=== PATIENT | female | born 1980 | race Two or more races ===

== ENCOUNTER 2022-11-30 18:36 | Emergency (ER) | payer BC ==
[~2022-11-30] VITALS: Ht 160 cm; Wt 72.6 kg
--- NOTE | 2022-11-30 18:46 | NUR ---
"I was making dinner and sliced my pinkie" PT A/OX4. TOLERATING R/A WELL WITH NO RESP DISTRESS.
[2022-11-30 18:47] VITALS: BP 126/81
[2022-11-30] MEDS ORDERED: GELATIN SPONGE,ABSORBABLE 1 SPONGE SPONGE TP ONE (19:22)
[2022-11-30] MEDS ORDERED: IBUPROFEN 600 MG TABLET ONE (19:29)
[2022-11-30] MEDS ORDERED: CELLULOSE,OXIDIZED 1 EACH EACH MC ONE (19:30)
[2022-11-30] MEDS ORDERED: IBUPROFEN 600 MG TABLET PO ONE (19:30)
--- NOTE | 2022-11-30 19:35 | NUR ---
WOUND CARE DONE.
--- NOTE | 2022-11-30 19:41 | NUR ---
Patient discharged to home in stable condition. Written and verbal after care instructions given. Patient verbalizes understanding of instruction.
== END 2022-11-30 19:41 | disposition home or self-care (01) ==
LOC: ER 18:46
DX: S61.216A Laceration without foreign body of right little finger without damage to nail, initial encounter (principal); Z88.2 Allergy status to sulfonamides; Z88.8 Allergy status to other drugs, medicaments and biological substances; W26.8XXA Contact with other sharp object(s), not elsewhere classified, initial encounter; Y93.89 Activity, other specified; Y92.89 Other specified places as the place of occurrence of the external cause; Y99.8 Other external cause status